=== PATIENT | male | born 1965 | race Caucasian/White ===

== ENCOUNTER 2021-04-11 06:30 | Emergency (ER) | payer OTHER ==
[~2021-04-11] VITALS: Ht 175.3 cm; Wt 108.9 kg
[2021-04-11 06:38] VITALS: BP_SYST 174
[2021-04-11] MEDS ORDERED: KETOROLAC TROMETHAMINE 60 MG/2 ML VIAL IM ONE (07:30)
[2021-04-11] MEDS ORDERED: IBUP-1970 PO (09:37)
[2021-04-11] MEDS ORDERED: CYCL10TA24 PO (09:37)
[2021-04-11 10:08] VITALS: BP_SYST 151
== END 2021-04-11 10:09 | disposition home or self-care (01) ==
LOC: SED 06:30
DX: S16.1XXA Strain of muscle, fascia and tendon at neck level, initial encounter (principal); S39.012A Strain of muscle, fascia and tendon of lower back, initial encounter; V49.49XA Driver injured in collision with other motor vehicles in traffic accident, initial encounter; Y93.89 Activity, other specified; Y92.89 Other specified places as the place of occurrence of the external cause; Y99.8 Other external cause status
CPT/HCPCS: 72125; 72131; 76376; 96372; 99285; J1885